=== PATIENT | female | born 1965 | race Caucasian/White ===

== ENCOUNTER 2021-09-06 13:16 | Outpatient (CLI) | payer OTHER, SELFPAY | END 2021-09-06 13:17 | disposition home or self-care (01) | PROVIDERS: PCP Internal Medicine; Visit Provider Otolaryngology | DX: H93.13 Tinnitus, bilateral (principal); H90.42 Sensorineural hearing loss, unilateral, left ear, with unrestricted hearing on the contralateral side | CPT/HCPCS: 92557; 92567 ==

== ENCOUNTER 2022-06-03 00:41 | Day surgery (SDC) | payer OTHER, SELFPAY ==
[2022-05-20 13:21] VITALS: BMI 21.4
[2022-06-03 07:34] VITALS: BP 131/72; PULSE 88; RESP 20; TEMP 36.2; O2SAT 100; BMI 20.8
[2022-06-03] MEDS: LACTATED RINGERS 1,000 ML 150 ML IV CONT (07:40)
--- NOTE | 2022-06-03 07:55 | P.PNAN_ITS ---
Anes - Initial Pre Proc Eval Procedure: Operation Date: 06/03/22 08:45 Proposed Procedures p Colonoscopy - Nadir Mckinley MD Date/Time: 06/03/22 07:55 Surgeon: Nadir Mckinley MD Pre Op Diagnosis: hx colon polyps Patient Data Age: 57 Gender: F Height: 1.6 m Weight: 53.4 kg Last Vital Signs Temp 97.2 F L 06/03/22 07:34 Pulse 88 06/03/22 07:34 Resp 20 06/03/22 07:34 BP 131/72 06/03/22 07:34 Pulse Ox 100 06/03/22 07:34 O2 Del Method Room Air 06/03/22 07:34 Allergies Allergy/AdvReac Type Severity Reaction Status Date / Time No Known Allergies Allergy Unknown Verified 06/03/22 07:33 Home Medications Medication Instructions Recorded Confirmed Type albuterol sulfate 90 mcg/actuation 2 puff inhalation Q4H PRN 04/21/21 05/20/22 Rx aerosol inhaler (ProAir HFA) shortness of breath or wheezing #8.5 grams levothyroxine 75 mcg tablet 75 mcg PO DAILY #90 tabs 03/14/22 05/20/22 Rx Patient hx anesthesia problems: none Family hx anesthesia problems: none Results Review: All pre-operative results and documents have been reviewed as part of the pre- operative evaluation. [facility] Family History Family History Father Family history of malignant neoplasm Patient's father is Alcoholism Heart disease Mother Family history of malignant neoplasm of urinary bladder Grandparent Diabetes mellitus Social History Social History Smoking status: Never smoker Second hand tobacco smoke exposure: No Alcohol intake: current Alcohol use details: Wine Substance use: never Lack of Transportation: No Lack of Food: Never True Current Housing: I Have Housing Concerned About Future Housing: No Difficulty Paying Gas/Electric Bills: No Difficulty Paying for Meds: No Currently Unemployed: No Education: Associate Degree Difficulty w/ Childcare or Family Care: No Spiritual care concerns: No Anes - Eval Final PreProcedure Day of Procedure 06/03/22 07:55 Patient weight: normal Heart: regular rate and rhythm Lungs: clear to auscultation Airway: Mallampati scale class II Neurological: alert and oriented Last oral intake: >/= 8 hours ASA classification: III Emergent: no Anesthetic plan: proceed Anesthesia type and monitoring: general GIVS and standard monitoring Results Review: All pre-operative results and documents have been reviewed as part of the pre-operative evaluation. Informed Consent: The patient's anesthetic plan and its attendant risks and benefits were discussed with the patient/family/POA. Questions were solicited and answers provided to the satisfaction of the patient/family/POA.
--- NOTE | 2022-06-03 08:12 | PM.HPGS ---
History of Present Illness History of Present Illness Consent: Risks, benefits, and alternatives have been discussed and questions answered. Patient agrees to proceed with procedure. Chief complaint: hx colon polyps Narrative: Zoey Lowe is a 57 year old female Presents for screening colonoscopy. Patient has past history is significant for a colon polyp in 2018 that will ultimately was found to be a benign lymphoid aggregate. Patient reports that her mother had resection of her colon for uncertain reason. Presumably for because of a colon polyp. Patient reports that her current weight appetite and bowel movements are normal. Review of Systems Review of Systems: Review of systems noncontributory. [facility] Family History Family History Father Family history of malignant neoplasm Patient's father is Alcoholism Heart disease Mother Family history of malignant neoplasm of urinary bladder Grandparent Diabetes mellitus Social History Social History Smoking status: Never smoker Second hand tobacco smoke exposure: No Alcohol intake: current Alcohol use details: Wine Substance use: never Lack of Transportation: No Lack of Food: Never True Current Housing: I Have Housing Concerned About Future Housing: No Difficulty Paying Gas/Electric Bills: No Difficulty Paying for Meds: No Currently Unemployed: No Education: Associate Degree Difficulty w/ Childcare or Family Care: No Spiritual care concerns: No Meds Home Medications and Allergies Home Medications Medication Instructions Recorded Confirmed Type albuterol sulfate 90 mcg/actuation 2 puff inhalation Q4H PRN 04/21/21 05/20/22 Rx aerosol inhaler (ProAir HFA) shortness of breath or wheezing #8.5 grams levothyroxine 75 mcg tablet 75 mcg PO DAILY #90 tabs 03/14/22 05/20/22 Rx Allergies Allergy/AdvReac Type Severity Reaction Status Date / Time No Known Allergies Allergy Unknown Verified 06/03/22 07:33 Vital Signs Vital Signs - 24 hr 06/03/22 07:34 Temperature 97.2 F L Pulse Rate 88 Respiratory Rate 20 Blood Pressure 131/72 Pulse Oximetry 100 Oxygen Delivery Room Air Exam Narrative: Physical exam reveals patient to be alert. Vital signs stable. HEENT exam is unremarkable. Patient is anicteric. Lungs are clear to auscultation and percussion. Heart is without 1 murmur or extra sounds. Abdominal exam bowel sounds are present soft nontender with no organomegaly. Digital external rectal exam is normal. Assessment and Plan Assessment and plan (1) Encounter for screening colonoscopy: Code(s): Z12.11 - Encounter for screening for malignant neoplasm of colon Status: Acute Assessment and Plan: Patient presents today for screening colonoscopy. Further recommendations may be given after endoscopy.
[2022-06-03 09:19] VITALS: BP 127/84; PULSE 87; RESP 20; O2SAT 100
[2022-06-03 09:29] VITALS: BP 132/75; PULSE 74; RESP 21; O2SAT 100
[2022-06-03 09:39] VITALS: BP 123/83; PULSE 72; RESP 22; O2SAT 100
== END 2022-06-03 09:48 | disposition home or self-care (01) ==
PROVIDERS: PCP Internal Medicine; Visit Provider Internal Medicine Gastroenterology
PROC: 0DJD8ZZ Inspection of Lower Intestinal Tract, Via Natural or Artificial Opening Endoscopic (ICD-10-PCS; CPT 45378; principal; 2022-06-03 08:45)
DX: Z12.11 Encounter for screening for malignant neoplasm of colon (principal); K64.8 Other hemorrhoids; K57.30 Diverticulosis of large intestine without perforation or abscess without bleeding; Z86.010 Personal history of colon polyps; Z79.51 Long term (current) use of inhaled steroids
CPT/HCPCS: 45378; J2704; J7120